=== PATIENT | female | born 1945 | race Caucasian/White ===

== ENCOUNTER → 2017-01-07 | Outpatient (CLI) | payer MEDICARE, BC ==
[~2017-01-07] MED LIST: FEMHRT
--- NOTE | 2017-01-07 09:12 | Diagnostic Imaging Report ---
EXAMINATION: Ultrasound of the aorta. INDICATION: Bounding abdominal aorta. FINDINGS: The proximal abdominal aorta is 1.9, at the mid level 1.6, and distally 1.5 cm in caliber. The right common iliac artery is up to 0.8 and the left is 0.8 cm in caliber. No aneurysm. Color Doppler demonstrates patency of these vessels. IMPRESSION: Normal caliber of the abdominal aorta and common iliac arteries. Dictated by: Dictated on workstation # [id number]
== END ==
LOC: RAD 08:00
PROVIDERS: ATTEND Family Medicine
DX: R09.89 Other specified symptoms and signs involving the circulatory and respiratory systems (principal)
CPT/HCPCS: 76775

== ENCOUNTER 2017-09-29 11:42 | Outpatient (CLI) | payer MEDICARE ==
[~2017-09-29] VITALS: Ht 157.5 cm; Wt 57.6 kg
[~2017-09-29 11:42] MED LIST changes: +CLOP75TA69 PO
== END 2017-09-29 13:23 ==
LOC: PREOP 11:42
PROVIDERS: ATTEND Surgery
DX: Z01.818 Encounter for other preprocedural examination (principal); Z12.11 Encounter for screening for malignant neoplasm of colon

== ENCOUNTER 2017-10-01 10:13 | Day surgery (SDC) | payer MEDICARE, BC ==
[~2017-10-01] VITALS: Ht 157.5 cm; Wt 57.6 kg
--- OUTSIDE RECORDS SUMMARY | 2017-10-01 10:17 | XMS REPORT | Continuity of Care Document ---
Author Author [facility] Organization [facility] Address Unknown Phone Unavailable Allergies Active Description Code Type Severity Reaction Onset Reported/Identified Relationship to Patient Clinical Status Yes NKANo Known Allergies NKA Miscellaneous Allergy Unknown N/A 01/21/2007 Medications There is no data. Problems Date Dx Coded Attending Type Code Diagnosis Diagnosed By 01/07/2017 ARABELLA CAMPOS MD Ot V49.81 ASYMPT POSTMENOPAUSAL STATUS (AGE-RELATE 01/07/2017 ARABELLA CAMPOS MD Ot V82.81 SCREENING FOR OSTEOPOROSIS 01/07/2017 VADIM ECHAVARRIA MD Ot 435.9 TRANS CEREB ISCHEMIA NOS 01/07/2017 VADIM ECHAVARRIA MD Ot 786.50 CHEST PAIN NOS 01/07/2017 ARABELLA CAMPOS MD Ot R09.89 OTH SYMPTOMS AND SIGNS INVOLVING THE CIR 01/07/2017 ARABELLA CAMPOS MD Ot R09.89 OTH SYMPTOMS AND SIGNS INVOLVING THE CIR 01/07/2017 ARABELLA CAMPOS MD Ot R09.89 OTH SYMPTOMS AND SIGNS INVOLVING THE CIR 01/07/2017 ARABELLA CAMPOS MD Ot V49.81 ASYMPT POSTMENOPAUSAL STATUS (AGE-RELATE 01/07/2017 ARABELLA CAMPOS MD Ot V82.81 SCREENING FOR OSTEOPOROSIS 01/07/2017 VADIM ECHAVARRIA MD Ot 435.9 TRANS CEREB ISCHEMIA NOS 01/07/2017 VADIM ECHAVARRIA MD Ot 786.50 CHEST PAIN NOS 01/07/2017 ARABELLA CAMPOS MD Ot R09.89 OTH SYMPTOMS AND SIGNS INVOLVING THE CIR 01/08/2017 ARABELLA CAMPOS MD Ot R09.89 OTH SYMPTOMS AND SIGNS INVOLVING THE CIR 01/15/2017 ARABELLA CAMPOS MD Ot R09.89 OTH SYMPTOMS AND SIGNS INVOLVING THE CIR 01/30/2017 ARABELLA CAMPOS MD Ot R09.89 OTH SYMPTOMS AND SIGNS INVOLVING THE CIR 02/05/2017 ARABELLA CAMPOS MD Ot R09.89 OTH SYMPTOMS AND SIGNS INVOLVING THE CIR Procedures There is no data. Results There is no data. Encounters ACCT No. Visit Date/Time Discharge Status Pt. Type Provider Facility Loc./Unit Complaint [id number] 01/07/2017 08:00:00 01/07/2017 23:59:59 CLS Outpatient ARABELLA CAMPOS MD [facility] RAD BOUNDING ABD AORTA [id number] 07/28/2013 10:57:00 07/28/2013 23:59:59 CLS Outpatient ITALIA CONDON, VADIM Flor [facility] CARD CP TIA [id number] 06/10/2013 09:35:00 06/10/2013 23:59:59 CLS Outpatient ARABELLA CAMPOS MD [facility] RAD INITIAL PREVENTIVE EXAM [id number] 12/31/2016 18:49:30 12/31/2016 23:59:59 CLS Outpatient
[2017-10-01] MEDS ORDERED: NS IV 500 ML 500 ML ONE ×2 (10:21→12:26)
[2017-10-01] MEDS: NS IV 500 ML 500 ML IV PRN ×2 (10:40→12:30)
[2017-10-01] MEDS ORDERED: LIDOCAINE JELLY 2% (XYLOCAINE) 5 ML TUBE MM PRN (10:45)
[2017-10-01] MEDS ORDERED: HURRICAINE EXT TUBE (BENZOCAINE) XX PRN (10:45)
[2017-10-01 10:46] VITALS: BP 134/73
--- NOTE | 2017-10-01 10:53 | Conscious Sedation/ASA ---
Conscious Sedation Pre-Proced Time Reviewed: 10:45 ASA Class: 2 Airway Mallampati Classification: ([place] appropriate class) I. II. III, IV Lungs Heart ASA score ASA 1: a normal healthy patient ASA 2: a patient with a mild systemic disease (mid diabetes, controlled hypertension, obesity ASA 3: a patient with a severe systemic disease that limits activity (angina , COPD, prior Myocardial infarction) ASA 4: a patient with an incapacitating disease that is a constant threat to life (CHF, renal failure) ASA 5: a moribund patient not expected to survive 24 hrs. (ruptured aneurysm) ASA 6: a declared brain patient whose organs are being harvested. For emergent operations, add the letter E after the classification Grade 2 Sedation Plan: Analgesia, Amnesia, Plan communicated to team members, Discussed options with patient/fam, Discussed risks with patient/fam Note The patient is an appropriate candidate to undergo the planned procedure, sedation, and anesthesia. The patient immediately re-assessed prior to indication. ARAM CHAWLA MD Oct 01, 2017 10:53
--- NOTE | 2017-10-01 10:54 | Progress Note-Pre Operative ---
Pre-Operative Progress Note H&P Reviewed The H&P was reviewed, patient examined and no changes noted. Date Seen by Provider: Oct 01, 2017 Time Seen by Provider: 10:45 Date H&P Reviewed: Oct 01, 2017 Time H&P Reviewed: 10:45 Pre-Operative Diagnosis: screening colonoscopy ARAM CHAWLA MD Oct 01, 2017 10:54
[2017-10-01] MEDS ORDERED: LIDOCAINE JELLY 2% (XYLOCAINE) 5 ML TUBE ONE (10:55)
[2017-10-01] MEDS ORDERED: fentaNYL INJECTION 100 MCG/2 ML AMP ONE ×2 (10:55→12:27)
[2017-10-01] MEDS ORDERED: MIDAZOLAM 2 MG/2 ML (VERSED) VIAL ONE ×5 (10:55→12:37)
[2017-10-01] MEDS ORDERED: HYDROcodone/APAP 5 MG/325 MG (LORTAB) TAB PO PRN (11:00)
[2017-10-01] MEDS ORDERED: ONDANSETRON 4 MG/2 ML (SDV) Z0FRAN IV PRN (11:00)
[2017-10-01] MEDS ORDERED: morphine INJ 10 MG/ML 1ML (SYR OR VIAL) IV PRN (11:00)
[2017-10-01] MEDS ORDERED: ACETAMINOPHEN 325 MG TABLET/CAPLET (TYLENOL) PO PRN (11:00)
[2017-10-01] MEDS: fentaNYL INJECTION 100 MCG/2 ML AMP IVP PRN ×4 (11:40→12:30)
[2017-10-01] MEDS: MIDAZOLAM 2 MG/2 ML (VERSED) VIAL IVP PRN ×5 (11:45→12:35)
--- NOTE | 2017-10-01 12:57 | Progress Note-Post Operative ---
Post-Operative Progess Note Surgeon (s)/Billing Analyst (s) Surgeon ARAM CHAWLA MD Billing Analyst: none Pre-Operative Diagnosis screening colonoscopy Post-Operative Diagnosis mild-mod sigmoid diverticulosis. Procedure & Operative Findings Date of Procedure 10/01/17 Procedure Performed/Findings Colonoscopy Anesthesia Type CS Estimated Blood Loss Estimated blood loss (mL): minimal Specimens/Packing Specimens Removed none ARAM CHAWLA MD Oct 01, 2017 12:57 pm
--- NOTE | 2017-10-01 12:58 | Discharge Inst-Surgical ---
D/C Lap Instructions-[place] Follow Up 10 years Activity as tolerated High Fiber Diet 25g or more per day Avoid Alcohol, Caffeine, Spicy Wink and Acid foods. Drink 64 fluid oz or more of fluids per day. Symptoms to Report: Fever over 101 degree F, Nausea/Vomiting If any problems/questions: Contact your physician or go to Emergency Room ARAM CHAWLA MD Oct 01, 2017 12:58 pm
[2017-10-01 13:05] VITALS: BP 121/62
[2017-10-01 13:35] VITALS: BP 126/68
[2017-10-01] MEDS ORDERED: ONDANSETRON 4 MG (ZOFRAN) ORAL DISSOLVE TAB ONE (14:20)
[2017-10-01] MEDS ORDERED: ONDANSETRON 4 MG (ZOFRAN) ORAL DISSOLVE TAB PO ONE (14:30)
[2017-10-01 14:40] VITALS: BP 126/68
--- NOTE | 2017-10-01 20:12 | OPERATIVE REPORT ---
DATE OF SERVICE: 10/01/2017 ATTENDING PHYSICIAN: Dr. Bettina Huggins. ATTENDING PRIMARY CARE PHYSICIAN" Bettina Huggins MD PREOPERATIVE DIAGNOSIS: Screening colonoscopy. POSTOPERATIVE DIAGNOSIS: Mild to moderate sigmoid diverticulosis. PROCEDURE: Colonoscopy. SURGEON: Aram Chawla. ANESTHESIA: Conscious sedation. ESTIMATED BLOOD LOSS: Minimal. FINDINGS: Mild to moderate sigmoid diverticulosis, no mucosal inflammatory change to indicate any active diverticulitis. Remainder of the colon was normal. There were no polyps identified. DISPOSITION: The patient tolerated the procedure well. INDICATIONS: The patient is a 71-year-old female in need of a followup screening colonoscopy. Her last colonoscopy was approximately 10 years ago and she believes that to be normal. She states for the most part she is doing well and does not report any major issues of diarrhea nor constipation as well as no red blood per rectum nor any dark tarry stools. She also does not report any family history of colon cancer. DESCRIPTION OF PROCEDURE: The patient was brought to the endoscopy suite, laid in the left lateral decubitus position. After adequate IV pain and sedating medications and conscious sedation anesthesia, a digital rectal examination was performed. No significant hemorrhoids identified. Normal sphincter tone was felt and there were no palpable masses. The endoscope was then intubated to the anus and rectum gently insufflated. The endoscope was then advanced to the valves of Angel rectum with no polyps or any neoplasms identified. We then proceeded to the sigmoid colon where mid to moderate sized sigmoid diverticulosis was identified with no mucosal inflammatory change to indicate any active diverticulitis. The endoscope was then advanced to the remainder of the descending, transverse and ascending colon to the cecum. These segments were normal. There were no polyps or any neoplasms identified throughout the colon or rectum. The endoscope was then slowly withdrawn while taking a second look and suctioning of residual air with no additional findings. The patient tolerated the procedure well. We will have her continue with medical management with a high fiber diet with at least 25 grams of fiber per day as well as at least 64 fluid ounces of water daily to promote soft stools on a daily basis. She does not need another colonoscopy for another 10 years; however, sooner if she becomes symptomatic. Job ID: [id number] DocumentID: [id number] Dictated Date: 10/01/2017 12:57:25 [employer] Well Pumper Date: 10/01/2017 20:12:07 Dictated By: ARAM CHAWLA MD
== END 2017-10-01 14:40 | disposition home or self-care (01) ==
LOC: ENDO 10:13
PROVIDERS: ATTEND Surgery
DX: Z12.11 Encounter for screening for malignant neoplasm of colon (principal); K57.30 Diverticulosis of large intestine without perforation or abscess without bleeding; Z86.73 Personal history of transient ischemic attack (TIA), and cerebral infarction without residual deficits; Z87.891 Personal history of nicotine dependence
CPT/HCPCS: G0121

== ENCOUNTER → 2020-01-22 | Outpatient (CLI) | payer MEDICARE ==
[2020-01-22 12:55] LABS: BASOPHILS # (AUTO) 0.1 10^3/uL (0.0-0.1); BASOPHILS % (AUTO) 1 % (0-10); EOSINOPHILS % (AUTO) 0 % (0-10); HEMATOCRIT 44 % (35-52); HEMOGLOBIN 13.8 g/dL (11.5-16.0); LYMPHOCYTES # (AUTO) 1.5 10^3/uL (1.0-4.0); LYMPHOCYTES % (AUTO) 16 % (12-44); MEAN CORPUSCULAR HEMOGLOBIN 30 pg (25-34); MEAN CORPUSCULAR HGB CONC 32 g/dL (32-36); MEAN CORPUSCULAR VOLUME 95 fL (80-99); MEAN PLATELET VOLUME 11.1 fL (9.0-12.2); MONOCYTES # (AUTO) 0.4 10^3/uL (0.0-1.0); MONOCYTES % (AUTO) 5 % (0-12); NEUTROPHILS # (AUTO) 7.3 10^3/uL (1.8-7.8); NEUTROPHILS % (AUTO) 78 % (42-75); PLATELET COUNT 183 10^3/uL (130-400); WHITE BLOOD COUNT 9.3 10^3/uL (4.3-11.0)
[2020-01-22 13:04] LABS: ALBUMIN 4.8 GM/DL (3.2-4.5); CHLORIDE 105 MMOL/L (98-107); POTASSIUM 4.1 MMOL/L (3.6-5.0); SODIUM 141 MMOL/L (135-145)
[2020-01-22 13:06] LABS: CALCIUM 9.9 MG/DL (8.5-10.1)
[2020-01-22 13:07] LABS: GLUCOSE 113 MG/DL (70-105)
[2020-01-22 13:08] LABS: CARBON DIOXIDE 23 MMOL/L (21-32)
[2020-01-22 13:09] LABS: BILIRUBIN,TOTAL 0.5 MG/DL (0.1-1.0)
[2020-01-22 13:10] LABS: ALKALINE PHOSPHATASE 93 U/L (40-136)
[2020-01-22 13:11] LABS: CREATININE SERUM 0.96 MG/DL (0.60-1.30); GFR ESTIMATED 57
[2020-01-22 13:12] LABS: BUN/CREATININE RATIO 21
[2020-01-22 13:13] LABS: ALANINE AMINOTRANSFERASE 18 U/L (0-55)
== END ==
LOC: LAB 12:39
PROVIDERS: ATTEND Nurse Practitioner Family
DX: I10 Essential (primary) hypertension (principal); R42 Dizziness and giddiness; R11.0 Nausea
CPT/HCPCS: 36415; 80053; 82553; 84484; 85025

== ENCOUNTER → 2020-03-29 | Outpatient (CLI) | payer MEDICARE | LOC: CARD 12:46 | PROVIDERS: ATTEND Internal Medicine Cardiovascular Disease | DX: I63.9 Cerebral infarction, unspecified (principal); I08.0 Rheumatic disorders of both mitral and aortic valves | CPT/HCPCS: 93306 ==

== ENCOUNTER → 2020-04-05 | Outpatient (CLI) | payer MEDICARE | LOC: LABNPT 07:02 | PROVIDERS: ATTEND Family Medicine | DX: Z53.9 Procedure and treatment not carried out, unspecified reason (principal) ==

== ENCOUNTER → 2020-04-06 | Outpatient (CLI) | payer MEDICARE | LOC: LABNPT 08:10 | PROVIDERS: ATTEND Family Medicine | DX: Z20.828 Contact with and (suspected) exposure to other viral communicable diseases (principal) | CPT/HCPCS: 87635 ==

== ENCOUNTER → 2020-09-26 | Outpatient (CLI) | payer MEDICARE ==
--- NOTE | 2020-09-26 13:52 | Diagnostic Imaging Report ---
INDICATION: Postmenopausal state. COMPARISON: 06/10/2013 FINDINGS: AP Spine L1-L4: [BMD (g/cm2): 1.178] [T-Score: -0.2] [Z-Score: 1.8] [BMD Previous: 1.127] [BMD % Change: 4.5] LT Hip Neck: [BMD (g/cm2): 0.797] [T-Score: -1.7] [Z-Score: 0.3] LT Hip Total: [BMD (g/cm2):0.896] [T-Score:-0.9] [Z-Score: 0.9] [BMD Previous: 0.908] [BMD % Change: -1.3] RT Hip Neck: [BMD (g/cm2):0.784] [T-Score:-1.8] [Z-Score:0.2] RT Hip Total: [BMD (g/cm2):0.801] [T-score:-1.6] [Z-Score:0.2] [BMD Previous:0.862] [BMD % Change:-7.1] *Indicates significant change from prior examination based on 95% confidence level. World Health Organization criteria for BMD interpretation classify patients as Normal (T-score at or above -1.0), Osteopenic (T-score between -1.0 and -2.5) or Osteoporotic (T-score at or below -2.5). LIMITATIONS AND MODIFICATION: None. FRACTURE RISK (FRAX SCORE): The ten year probability of (%): Major Osteoporotic Fracture: [11.3] Hip Fracture: [2.4] IMPRESSION: 1. Osteopenia (Low bone mass). 2. No significant change in bone mineral density since prior examination. 3. See below National Osteoporosis Foundation guidelines on when to potentially initiate pharmacologic therapy. Based on the National Osteoporosis Foundation Guidelines, pharmacologic treatment should be initiated in any of the following, unless clinical conditions suggest otherwise: * Any patient with prior fragility fracture of the hip or vertebrae. A spine fracture indicates 5X risk for subsequent spine fracture and 2X risk for subsequent hip fracture. * Osteoporosis (T-score <-2.5). * Postmenopausal women and men age 50 and older with low bone mass/osteopenia (T-score between -1.0 and -2.5) by DXA and 10-year major osteoporotic fracture greater than 20% or a 10-year probability of hip fracture greater than 3%. These fracture risks are supplied above in the FRAX score, if applicable. * Clinician judgement and/or patient preferences may indicate treatment for people with 10-year fracture probabilities above or below these levels. Dictated by: Dictated on workstation # [id number]
== END ==
LOC: RAD 13:00
PROVIDERS: ATTEND Family Medicine
DX: M85.80 Other specified disorders of bone density and structure, unspecified site (principal); Z78.0 Asymptomatic menopausal state
CPT/HCPCS: 77080

== ENCOUNTER → 2022-07-10 | Outpatient (CLI) | payer MEDICARE, OTHER ==
[~2022-07-10] MED LIST changes: +CATHETER FLUSH 10 ML SYR IVP PRN; +CLOP-31 PO; -CLOP75TA69 PO
[2022-07-10 09:00] VITALS: BP 131/70
--- NOTE | 2022-07-10 13:45 | Cardiology Stress Test Report ---
Stress Test Report Date of Procedure/Referring: Date of Procedure: Jul 10, 2022 PCP Arabella Huggins MD Admitting Physician Admitting Physician: Attending Physician: Lillie Friend Indications: HTN Baseline Heart Rate: 67 Baseline Blood Pressure: Blood Pressure Systolic: 131 Blood Pressure Diastolic: 70 Vital Signs Date Time Temp Pulse Resp B/P (MAP) Pulse Ox O2 Delivery O2 Flow Rate FiO2 07/10/22 09:00 67 131/70 (90) Baseline Vital Signs Vital Signs Date Time Temp Pulse Resp B/P (MAP) Pulse Ox O2 Delivery O2 Flow Rate FiO2 07/10/22 09:00 67 131/70 (90) Baseline EKG: Baseline EKG: NSR Summary: After explaining the procedure and details to the patient, she signed the consent and was brought to the stress nuclear laboratory. Patient exercised on standard Rito protocol, EKG, heart rate and blood pressure were monitored continuously, resting and stress doses of radio tracer were injected, imaging was acquired and reviewed in the short axis, horizontal long axis and vertical long axis views Patient was able to exercise for a total of 7 minutes on Rito protocol, METs 8.5 Maximum heart rate 135 Maximum blood pressure 155/59 Stress EKG, Minimal nondiagnostic changes Recovery EKG, Return to baseline TID: 1.08 SSS: 4 SDS: 2 EF: 71 Conclusion: Good exercise tolerance for a total of 7 minutes on standard Rito protocol, 8.5 METS achieving 100% of maximal expected heart rate Appropriate heart rate and blood pressure response to exercise response to exercise return to baseline during recovery Nondiagnostic EKG changes with exercise return to baseline during recovery Typical female pattern with no significant ischemia or infarction noted on SPECT images Normal left ventricular size, ejection fraction 71% Copy Copies To 1: ARABELLA HUGGINS MD, BASHAR J MD Jul 10, 2022 13:45
== END ==
LOC: CARD 07:10
PROVIDERS: ATTEND Physician Assistant
DX: I10 Essential (primary) hypertension (principal)
CPT/HCPCS: 78452; 93017; A9502